=== PATIENT | female | born 1965 | race African-American/Black ===

== ENCOUNTER 2021-09-14 17:49 | Emergency (ER) | payer OTHER ==
[~2021-09-14] VITALS: Ht 172.7 cm; Wt 100.0 kg
[2021-09-14] MEDS ORDERED: FAMOTIDINE 20MG/2ML VIAL IV STA (18:52)
[2021-09-14] MEDS ORDERED: METOCLOPRAMIDE HCL 10MG/2ML VIAL IV STA (18:52)
[2021-09-14] MEDS ORDERED: SODIUM CHLORIDE 0.9% 1,000 ML IV ONE (19:00)
[2021-09-14 19:03] LABS: BASOPHILS % 0.5 % (0.0-2.0); HEMATOCRIT. 41.1 % (36.0-48.0); HEMOGLOBIN. 13.6 g/dL (12.0-16.0); LYMPHOCYTES % 9.4 % (20.0-50.0); MEAN CORPUSCULAR HEMOGLOBIN 31.8 pg (28.0-32.0); MEAN CORPUSCULAR VOLUME 96.1 fL (81.0-99.0); MEAN PLATELET VOLUME 7.4 fl (7.4-10.4); MONOCYTES % 1.3 % (2.0-8.0); NEUTROPHILS % 88.8 % (40.0-76.0); PLATELET 299 x1000/uL (130-400); RED BLOOD CELL COUNT 4.27 mill/uL (4.2-5.4); RED CELL DISTRIBUTION WIDTH 13.5 % (11.6-14.6)
[2021-09-14 19:09] LABS: CHLORIDE 108 mEq/L (98-107)
[2021-09-14 19:18] LABS: ETHANOL BLOOD < 10 mg/dL
[2021-09-14] MEDS ORDERED: ONDA4TAB50 MT (22:08)
[2021-09-14 22:30] VITALS: BP 147/45
== END 2021-09-14 22:45 | disposition home or self-care (01) ==
LOC: ER 17:49
DX: R11.2 Nausea with vomiting, unspecified (principal); M19.90 Unspecified osteoarthritis, unspecified site; M79.7 Fibromyalgia; Z87.19 Personal history of other diseases of the digestive system; Z88.5 Allergy status to narcotic agent
CPT/HCPCS: 36415; 71045; 74176; 80053; 80320; 83605; 83690; 85025; 96361; 96374; 96375; 99285; J2765; J3490; J7030; G0480

== ENCOUNTER 2021-09-16 10:03 | Emergency (ER) | payer OTHER ==
[~2021-09-16] VITALS: Ht 177.8 cm; Wt 86.0 kg
[~2021-09-16 10:03] MED LIST: ONDA4TAB50 MT
[2021-09-16] MEDS ORDERED: MAGNESIUM/ALUMINUM HYDROXIDE/SIMETHICONE 30ML UDC PO ONE (11:00)
[2021-09-16] MEDS ORDERED: ONDANSETRON 4MG ODT PO ONE (11:00)
[2021-09-16] MEDS ORDERED: VISCOUS LIDOCAINE 2% 15 ML UDC PO ONE (11:00)
[2021-09-16] MEDS ORDERED: FAMOTIDINE 20MG TABLET PO ONE (11:00)
[2021-09-16 11:10] LABS: BASOPHILS % 0.5 % (0.0-2.0); EOSINOPHILS % 0.1 % (0.0-5.0); HEMATOCRIT. 43.3 % (36.0-48.0); HEMOGLOBIN. 14.6 g/dL (12.0-16.0); LYMPHOCYTES % 14.9 % (20.0-50.0); MEAN CORPUSCULAR HEMOGLOBIN 32.3 pg (28.0-32.0); MEAN CORPUSCULAR VOLUME 95.6 fL (81.0-99.0); MEAN PLATELET VOLUME 7.6 fl (7.4-10.4); MONOCYTES % 4.2 % (2.0-8.0); NEUTROPHILS % 80.3 % (40.0-76.0); PLATELET 298 x1000/uL (130-400); RED BLOOD CELL COUNT 4.53 mill/uL (4.2-5.4); RED CELL DISTRIBUTION WIDTH 13.2 % (11.6-14.6)
[2021-09-16 11:13] LABS: CLARITY URINE CLEAR (CLEAR); COLOR URINE YELLOW (YELLOW); KETONES URINE 1+ (NEGATIVE); LEUKOCYTE ESTERASE URINE NEGATIVE (NEGATIVE); NITRITE URINE NEGATIVE (NEGATIVE); OCCULT BLOOD URINE 2+ (NEGATIVE); PROTEIN URINE 1+ (NEGATIVE); SPECIFIC GRAVITY URINE 1.016 (1.005-1.030)
[2021-09-16] MEDS ORDERED: ONDANSETRON HCL 4MG/2ML INJ IV ONE (11:15)
[2021-09-16] MEDS ORDERED: FAMOTIDINE 20MG/2ML VIAL IV ONE (11:15)
[2021-09-16 11:24] LABS: CHLORIDE 105 mEq/L (98-107)
[2021-09-16] MEDS ORDERED: METOCLOPRAMIDE HCL 10MG/2ML VIAL IV ONE (13:00)
[2021-09-16] MEDS ORDERED: FAMO-135 MT (13:20)
[2021-09-16 13:30] VITALS: BP 125/60
== END 2021-09-16 13:58 | disposition home or self-care (01) ==
LOC: ER 10:16
DX: R10.13 Epigastric pain (principal); Z88.0 Allergy status to penicillin; Z88.5 Allergy status to narcotic agent
CPT/HCPCS: 36415; 80053; 81003; 83690; 85025; 96374; 96375; 99284; J2405; J2765; J3490; Q0162

== ENCOUNTER 2021-11-28 13:48 | Emergency (ER) | payer MEDICAID, OTHER ==
[~2021-11-28] VITALS: Ht 160 cm; Wt 100.0 kg
[~2021-11-28 13:48] MED LIST changes: +FAMO-135 MT
[2021-11-28 13:52] VITALS: BP 127/75
[2021-11-28] MEDS ORDERED: FAMOTIDINE 20MG/2ML VIAL IV ONE (14:30)
[2021-11-28] MEDS ORDERED: SODIUM CHLORIDE 0.9% 1,000 ML IV ONE (14:30)
[2021-11-28] MEDS ORDERED: MAGNESIUM/ALUMINUM HYDROXIDE/SIMETHICONE 30ML UDC PO ONE (14:30)
[2021-11-28] MEDS ORDERED: FAMOTIDINE 20MG/2ML VIAL IV SCH (14:45)
[2021-11-28] MEDS ORDERED: MAGNESIUM/ALUMINUM HYDROXIDE/SIMETHICONE 30ML UDC PO SCH (14:50)
[2021-11-28 15:18] LABS: CHLORIDE 107 mEq/L (98-107)
[2021-11-28 15:25] LABS: BASOPHILS % 0.5 % (0.0-2.0); EOSINOPHILS % 0.1 % (0.0-5.0); HEMATOCRIT. 41.1 % (36.0-48.0); HEMOGLOBIN. 14.1 g/dL (12.0-16.0); LYMPHOCYTES % 11.6 % (20.0-50.0); MEAN CORPUSCULAR VOLUME 96.2 fL (81.0-99.0); MONOCYTES % 2.7 % (2.0-8.0); NEUTROPHILS % 85.1 % (40.0-76.0); PLATELET 318 x1000/uL (130-400); RED BLOOD CELL COUNT 4.28 mill/uL (4.2-5.4); RED CELL DISTRIBUTION WIDTH 12.8 % (11.6-14.6)
[2021-11-28] MEDS ORDERED: METOCLOPRAMIDE HCL 10MG/2ML VIAL IV ONE (16:30)
[2021-11-28] MEDS ORDERED: FAMO-135 MT (17:18)
[2021-11-28] MEDS ORDERED: ONDA4TAB11 PO (17:18)
== END 2021-11-28 18:20 | disposition home or self-care (01) ==
LOC: ER 13:48
DX: R10.13 Epigastric pain (principal); R11.10 Vomiting, unspecified
CPT/HCPCS: 36415; 80053; 83690; 84484; 85025; 96361; 96374; 96375; 99284; J2765; J3490; J7030